=== PATIENT | female | born 1955 | race Caucasian/White ===

== ENCOUNTER → 2016-10-13 | Outpatient (CLI) | payer OTHER ==
[~2016-10-13] MED LIST: ACT30 PO; ALBUAER19 INH; ATEN100T PO; ATEN50TA8 PO; BUPR-79 PO; CHOL100010 PO; CHOL20009 PO; CLR10 PO; COEN100C7 PO; COEN1CAP17 PO; CYAN100020 PO; DICL1GEL12 TOP; DICL1GEL28 TOP; DULO60CA44 PO; GABA600T PO; GLC/500 PO; LEVO112T2 PO; LEVO112T4 PO; LORA-741 PO; LORA10TA44 PO; METF1TAB85 PO; MISC4CAP PO; MOME50SP5 NAE; MOME6000 NAE; MULT-506 PO; MULTTAB58 PO; NRN/600 PO; NYSCR30 EXT; OMEG10007 PO; OMEP20CA9 PO; ONDA4TAB10 SL; ONDA4TAB46 PO; POLY335019 PO; POLY335040 PO; PRLSR20 PO; SIMV40TA2 PO; SPIR50TA2 PO; SPIR50TA3 PO; SULF800T23 PO; VNTHFA/IN INH
[2016-10-13 10:58] LABS: BASO % 0.6 %; BASO ABS # 0.05 K/uL (0-0.2); COMPLETE YES; EOS % 1.2 %; HEMATOCRIT 41.7 % (37-47); IG% 0.1 %; LYMPH % 40.1 %; LYMPH ABS # 3.21 K/uL (1.2-3.4); MEAN CELL VOLUME 81.1 fL (80-100); MEAN CORPUSCULAR HEMOGLOBIN 27.2 pg (25-34); MEAN CORPUSCULAR HGB CONC 33.6 g/dl (32-36); MEAN PLATELET VOLUME 9.7 fL (7.4-10.4); PLATELET COUNT 284 K/uL (130-400); RED BLOOD COUNT 5.14 M/uL (4.2-5.4); WHITE BLOOD COUNT 8.01 K/uL (4.8-10.8)
[2016-10-13 11:37] LABS: ALT/SGPT 21 U/L (12-78); BLOOD UREA NITROGEN 13 mg/dl (7-18); BUN/CREATININE RATIO 21.3 (10-20); CALCIUM 9.1 mg/dl (8.5-10.1); CARBON DIOXIDE 29 mmol/L (21-32); CHLORIDE 98 mmol/L (98-107); CHOLESTEROL 141 mg/dl (0-200); GLUCOSE 109 mg/dl (70-99); MAGNESIUM 1.8 mg/dl (1.8-2.4); POTASSIUM 3.8 mmol/L (3.5-5.1); SODIUM 138 mmol/L (136-145); TRIGLYCERIDES 103 mg/dl (0-150); VERY LOW DENSITY LIPOPROT CALC 21 mg/dl
[2016-10-13 11:46] LABS: ALB/GLOB RATIO 1.3 (0.9-2); ALKALINE PHOSPHATASE 65 U/L (45-117); AST/SGOT 15 U/L (15-37); CHOLESTEROL/HDL RATIO 2.7; HDL CHOLESTEROL 53 mg/dl; LDL CHOLESTEROL CALCULATED 67 mg/dl
[2016-10-13 11:53] LABS: ESTIMATED AVERAGE GLUCOSE 146 mg/dl; HA1C FLAG Normal (Normal)
== END | disposition home or self-care (01) ==
LOC: C.LAB 10:20
PROVIDERS: ATTEND Internal Medicine
DX: E11.8 Type 2 diabetes mellitus with unspecified complications (principal); E03.9 Hypothyroidism, unspecified; R00.2 Palpitations

== ENCOUNTER → 2016-10-28 | Day surgery (SDC) | payer OTHER ==
[2016-10-21 11:48] VITALS: Ht 158.8 cm; Wt 82.7 kg
[~2016-10-28] VITALS: Ht 158.8 cm; Wt 82.7 kg
[~2016-10-28] MED LIST changes: -ATEN50TA8 PO; -CHOL100010 PO; -COEN1CAP17 PO; -LEVO112T2 PO; +LIDOCAINE HCL 2% 2 ML VIAL (20MG/ML) ONE; -LORA10TA44 PO; +MIDAZOLAM HCL 1 MG/ML 2ML VIAL ONE; -MISC4CAP PO; -MOME50SP5 NAE; -MULTTAB58 PO; -NRN/600 PO; -OMEP20CA9 PO; +ONDANSETRON INJ 2 MG/ML 2 ML VIAL ONE; -POLY335040 PO; +PROPOFOL IV EMULSION 10 MG/ML 20 ML VIAL IV ONE; +SODIUM CHLORIDE 0.9% 500ML 500 ML IV ONE; -SPIR50TA2 PO
--- NOTE | 2016-10-28 08:46 | Endo History and Physical ---
History & Physical Date of Service: Oct 28, 2016. Chief Complaint: Screening Referring Physician: Dr. Roque History of Present Illness 61 yo CF who presents for screening colonoscopy. Past Surgical History Hx Cardiac Surgery: No Hx Abdominal Surgery: Yes (TUBAL LIGATION, D&C, TARUN LEFT OOPHERECTOMY) Hx Post-Op Nausea and Vomiting: Yes Hx Cancer Surgery: No Hx Thoracic Surgery: Yes (BRONCHOSCOPY, LUNG BIOSPY) Hx Orthopedic: Yes (RT/LEFT CTR) Hx Urinary Tract Surgery: Yes (RECTOCELE/UROCELE WITH MESH) Family History None Social History Smoking Status: Former Smoker Hx Substance Use: No Hx Alcohol Use: No Allergies Coded Allergies: Cat Dander (Verified Allergy, Mild, SNEEZY/ITCHY EYES, 10/21/16) Butalbital (Verified Allergy, Unknown, SENSITIVE, TONGUE GETS NUMB, ) Codeine (Verified Allergy, Unknown, FLUSHING FEELING, 10/21/16) Cortisone (Verified Allergy, Unknown, FLUSHING, 10/21/16) Dicyclomine (Verified Allergy, Unknown, Unknown, 10/21/16) Hydrocodone (Verified Allergy, Unknown, SKIN BURNING, 10/21/16) Methylprednisolone (Verified Allergy, Unknown, FLUSHING, 10/21/16) Penicillins (Verified Allergy, Unknown, Unknown, 10/21/16) Prednisone (Verified Allergy, Unknown, FLUSHING, 10/21/16) Verapamil (Verified Allergy, Unknown, Unknown, 10/21/16) Opioid Analgesics (Verified Adverse Reaction, Mild, N&V, 10/21/16) Uncoded Allergies: BUTALBITAL-APAP (Allergy, Unknown, Unknown, 04/17/16) CHEMICALS,PERFUMES,FLORALS (Allergy, Unknown, 11/16/02) Current Medications Reported Home Medications Medications Dose Route/Sig Max Daily Dose Days Date Category Dose Instructions Vitamin D (Cholecalciferol) 2,000 Unit Tab 1 Tab PO QAM 10/21/16 Reported Vitamin B12 (Cyanocobalamin) 1,000 Mcg Tab 1 Tab PO QAM 10/21/16 Reported Ventolin Hfa (Albuterol) 200 Puffs/55183 Mcg Aers 2-4 Puffs INH Q6H PRN 10/21/16 Reported Aldactone (Spironolactone) 50 Mg Tab 50 Mg PO QAM 10/21/16 Reported Zocor (Simvastatin) 40 Mg Tab 40 Mg PO QPM 10/21/16 Reported Actos (Pioglitazone) 30 Mg Tab 1 Tab PO QPM 90 10/21/16 Reported Zofran (Ondansetron HCl) 4 Mg Tab 4 Mg PO Q8H PRN 10/21/16 Reported Prilosec (Omeprazole) 20 Mg Capcr 20 Mg PO BID 10/21/16 Reported [place]-3 (Fish Oil) 1 Ea Cap 1 Cap PO QAM 10/21/16 Reported Nystatin Cream (Nystatin) 90 Appln/30 Gm Cr 0 EXT 10/21/16 Reported APPLY TO AFFECTED AREA BID Multivitamin (Multivitamins) Tab 1 Tab PO QAM 10/21/16 Reported Miralax (Polyethylene Glycol 3350) 1 Pow Pow 17 Gm PO DAILY PRN 10/21/16 Reported Glucophage (Metformin Hcl) 500 Mg Tab 1 Dose PO TID 10/21/16 Reported TAKES 1 TAB IN AM TAKES 2 TABS AT SUPPER TAKES 1 TAB AT HS Ativan (Lorazepam) 0.5 Mg Tab 0.5 Mg PO TID PRN 10/21/16 Reported Claritin (Loratadine) 10 Mg Tab 10 Mg PO QAM 10/21/16 Reported Levothyroxine Sodium 112 Mcg Tab 1 Tab PO QAM 90 10/21/16 Reported Neurontin (Gabapentin) 600 Mg Tab 600 Mg PO TID 10/21/16 Reported Cymbalta (Duloxetine Hcl) 60 Mg Cap 2 Tab PO HS 10/21/16 Reported Coq10 (Coenzyme Q10 (Ubidecarenone)) 100 Mg Cap 1 Cap PO QAM 10/21/16 Reported Tenormin (Atenolol) 100 Mg Tab 100 Mg PO QAM 10/21/16 Reported Voltaren 1% Top Gel (Diclofenac Sodium) Gel 2 Gm TOP QID PRN 04/17/16 Reported APPLY TO UPPER EXTREMITIES DIRECTED Wellbutrin Sr (Bupropion HCl) 150 Mg Ertab 150 Mg PO BID 10/18/13 Reported Vital Signs Weight (Kilograms): 82.73 Height (Feet): 5 Height (Inches): 2.5 Physical Exam General Appearance: WD/WN, no apparent distress Respiratory/Chest: Auscultation: breath sounds normal Cardiovascular: Heart Auscultation: RRR Abdomen: Bowel Sounds: normal Inspection & Palpation: soft, non-distended, no tenderness, guarding & rebound Assessment and Plan Assessment: 61 yo CF who presents for screening colonoscopy. Plan: Proceed with colonoscopy.
[2016-10-28 08:57] VITALS: TEMP 36.8
--- NOTE | 2016-10-28 09:56 | GI REPORT ---
Procedure Date: 10/28/2016 9:10 AM Procedure: Colonoscopy Indications: Screening for colorectal malignant neoplasm Medicines: Monitored Anesthesia Care Complications: No immediate complications. Estimated Blood Loss: Estimated blood loss: none. Procedure: Pre-Anesthesia Assessment: - Prior to the procedure, a History and Physical was performed, and patient medications and allergies were reviewed. The patient's tolerance of previous anesthesia was also reviewed. The risks and benefits of the procedure and the sedation options and risks were discussed with the patient. All questions were answered, and informed consent was obtained. Prior Anticoagulants: The patient has taken no previous anticoagulant or antiplatelet agents. ASA Grade Assessment: III - A patient with severe systemic disease. After reviewing the risks and benefits, the patient was deemed in satisfactory condition to undergo the procedure. After I obtained informed consent, the scope was passed under direct vision. Throughout the procedure, the patient's blood pressure, pulse, and oxygen saturations were monitored continuously. The scope was introduced through the anus and advanced to the cecum, identified by appendiceal orifice and ileocecal valve. The colonoscopy was performed without difficulty. The patient tolerated the procedure well. The quality of the bowel preparation was fair. The ileocecal valve, appendiceal orifice, and rectum were photographed. Findings: Two sessile polyps were found in the ascending colon. The polyps were 3 to 4 mm in size. These polyps were removed with a cold biopsy forceps. Resection and retrieval were complete. Multiple small-mouthed diverticula were found in the sigmoid colon. Non-bleeding internal hemorrhoids were found during retroflexion. The hemorrhoids were small. Impression: - Two 3 to 4 mm polyps in the ascending colon, removed with a cold biopsy forceps. Resected and retrieved. - Diverticulosis in the sigmoid colon. - Non-bleeding internal hemorrhoids. Recommendation: - Resume previous diet. - Continue present medications. - Repeat colonoscopy for surveillance based on pathology results. - Return to primary care physician as previously scheduled. - Recommend followup in our office and consider Defecography and anorectal manometry in the near future Chito Glaser, DO 10/28/2016 9:55:09 AM This report has been signed electronically. Note Initiated On: 10/28/2016 9:10 AM
--- NOTE | 2016-10-28 09:56 | Discharge Instructions ---
Endoscopy Patient Instructions Date / Procedure(s) Performed Oct 28, 2016. Colonoscopy Allergy Information Coded Allergies: Cat Dander (Verified Allergy, Mild, SNEEZY/ITCHY EYES, 10/21/16) Butalbital (Verified Allergy, Unknown, SENSITIVE, TONGUE GETS NUMB, ) Codeine (Verified Allergy, Unknown, FLUSHING FEELING, 10/21/16) Cortisone (Verified Allergy, Unknown, FLUSHING, 10/21/16) Dicyclomine (Verified Allergy, Unknown, Unknown, 10/21/16) Hydrocodone (Verified Allergy, Unknown, SKIN BURNING, 10/21/16) Methylprednisolone (Verified Allergy, Unknown, FLUSHING, 10/21/16) Penicillins (Verified Allergy, Unknown, Unknown, 10/21/16) Prednisone (Verified Allergy, Unknown, FLUSHING, 10/21/16) Verapamil (Verified Allergy, Unknown, Unknown, 10/21/16) Opioid Analgesics (Verified Adverse Reaction, Mild, N&V, 10/21/16) Uncoded Allergies: BUTALBITAL-APAP (Allergy, Unknown, Unknown, 04/17/16) CHEMICALS,PERFUMES,FLORALS (Allergy, Unknown, 11/16/02) Discharge Date / Findings Oct 28, 2016. Colon polyps Diverticulosis Internal hemorrhoids Medication Instructions Stopped Medication(s): Metformin was last taken on Wednesday evening. Nystatin, aldactone and vitamins were not taken this am. Reported Home Medications Medications Dose Route/Sig Max Daily Dose Days Date Category Dose Instructions Vitamin D (Cholecalciferol) 2,000 Unit Tab 1 Tab PO QAM 10/21/16 Reported Vitamin B12 (Cyanocobalamin) 1,000 Mcg Tab 1 Tab PO QAM 10/21/16 Reported Ventolin Hfa (Albuterol) 200 Puffs/06358 Mcg Aers 2-4 Puffs INH Q6H PRN 10/21/16 Reported Aldactone (Spironolactone) 50 Mg Tab 50 Mg PO QAM 10/21/16 Reported Zocor (Simvastatin) 40 Mg Tab 40 Mg PO QPM 10/21/16 Reported Actos (Pioglitazone) 30 Mg Tab 1 Tab PO QPM 90 10/21/16 Reported Zofran (Ondansetron HCl) 4 Mg Tab 4 Mg PO Q8H PRN 10/21/16 Reported Prilosec (Omeprazole) 20 Mg Capcr 20 Mg PO BID 10/21/16 Reported [place]-3 (Fish Oil) 1 Ea Cap 1 Cap PO QAM 10/21/16 Reported Nystatin Cream (Nystatin) 90 Appln/30 Gm Cr 0 EXT 10/21/16 Reported APPLY TO AFFECTED AREA BID Multivitamin (Multivitamins) Tab 1 Tab PO QAM 10/21/16 Reported Miralax (Polyethylene Glycol 3350) 1 Pow Pow 17 Gm PO DAILY PRN 10/21/16 Reported Glucophage (Metformin Hcl) 500 Mg Tab 1 Dose PO TID 10/21/16 Reported TAKES 1 TAB IN AM TAKES 2 TABS AT SUPPER TAKES 1 TAB AT HS Ativan (Lorazepam) 0.5 Mg Tab 0.5 Mg PO TID PRN 10/21/16 Reported Claritin (Loratadine) 10 Mg Tab 10 Mg PO QAM 10/21/16 Reported Levothyroxine Sodium 112 Mcg Tab 1 Tab PO QAM 90 10/21/16 Reported Neurontin (Gabapentin) 600 Mg Tab 600 Mg PO TID 10/21/16 Reported Cymbalta (Duloxetine Hcl) 60 Mg Cap 2 Tab PO HS 10/21/16 Reported Coq10 (Coenzyme Q10 (Ubidecarenone)) 100 Mg Cap 1 Cap PO QAM 10/21/16 Reported Tenormin (Atenolol) 100 Mg Tab 100 Mg PO QAM 10/21/16 Reported Voltaren 1% Top Gel (Diclofenac Sodium) Gel 2 Gm TOP QID PRN 04/17/16 Reported APPLY TO UPPER EXTREMITIES DIRECTED Wellbutrin Sr (Bupropion HCl) 150 Mg Ertab 150 Mg PO BID 10/18/13 Reported OK to resume all medications today as prescribed. Provider Instructions Activity Restrictions - No exercising or heavy lifting for 24 hours. - Do not drink alcohol the day of the procedure. - Do not drive a car or operate machinery until the day after the procedure. - Do not make any important decisions or sign important papers in 24 hours after the procedure. Following Day: - Return to full activity which may include returning to work/school. Diet Start your diet with liquids and light foods (jello, soup, juice, toast). Then eat your usual diet if not nauseated. Treatment For Common After Affects For mild abdominal pain, bloating, or excessive gas: - Rest - Eat lightly - Lie on right side Follow-Up Information Follow-up with Dr. Brian Roque as scheduled Anesthesia Information What You Should Know You have had a procedure that required some medicine to reduce anxiety and discomfort. This treatment is called moderate sedation. After receiving the treatment, you may be sleepy, but you will be able to breathe on your own. The effects of the treatment may last for several hours. Follow these instructions along with Activity/Diet recommendations noted above: * Do NOT do anything where dizziness or clumsiness would be dangerous. * Rest quietly at home today, then you can be up and about tomorrow. * Have a responsible person stay with you the rest of today. * You may have had an I.V. today. If so, you may take the dressing off later today. Recommendations Call your doctor if: * Trouble breathing * Continuous vomiting for more than 24 hours * Temperature above 101 degrees * Severe abdominal pain or bloating * Pain not relieved by pain medicine ordered * There is increased drainage or redness from any incision * A large amount of rectal bleeding greater than 2-3 tablespoons. (If you had a polyp/s removed or have hemorrhoids, a small amount of blood - from the rectum is to be expected.) * You have any unanswered questions or concerns. IN THE EVENT OF A SERIOUS EMERGENCY, GO TO THE NEAREST EMERGENCY ROOM Your discharge instructions were prepared by provider Chito Glaser. Patient Instructions Signature Page Tina Graves Patient (or Guardian) Signature/Date: I have read and understand the instructions given to me by my caregivers. Caregiver/RN/Doctor Signature/Date: The above-named patient and/or guardian has received patient instructions on this date. + Original Patient Signature Page (only) stays with chart. Please make copy for patient.
[2016-10-28 10:17] VITALS: BP 105/65; PULSE 75; O2SAT 97
--- NOTE | 2016-10-28 10:19 | Anesthesiology Progress Note ---
Anesthesia Post Op Note Date & Time Oct 28, 2016 at 10:19 Vital Signs Pain Intensity: 0 Vital Signs Past 12 Hours Date Time Temp Pulse Resp B/P Pulse Ox O2 Delivery O2 Flow Rate FiO2 10/28/16 10:17 75 20 105/65 97 Room Air 10/28/16 10:02 77 20 100/59 96 Room Air 10/28/16 09:47 73 20 94/56 96 Room Air 10/28/16 08:57 36.8 75 20 124/70 98 Room Air Notes Mental Status: alert / awake / arousable, participated in evaluation Pt Amnestic to Procedure: Yes Nausea / Vomiting: adequately controlled Pain: adequately controlled Airway Patency, RR, SpO2: stable & adequate BP & HR: stable & adequate Hydration State: stable & adequate Anesthetic Complications: no major complications apparent
== END | disposition home or self-care (01) ==
LOC: C.GI 08:15
PROVIDERS: ATTEND Internal Medicine
DX: Z12.11 Encounter for screening for malignant neoplasm of colon (principal); Z86.010 Personal history of colon polyps; D12.2 Benign neoplasm of ascending colon; I10 Essential (primary) hypertension; G47.33 Obstructive sleep apnea (adult) (pediatric)

== ENCOUNTER → 2016-11-13 | Outpatient (CLI) | payer OTHER ==
[~2016-11-13] MED LIST changes: -ALBUAER19 INH; -LIDOCAINE HCL 2% 2 ML VIAL (20MG/ML) ONE; -MIDAZOLAM HCL 1 MG/ML 2ML VIAL ONE; -ONDANSETRON INJ 2 MG/ML 2 ML VIAL ONE; -PROPOFOL IV EMULSION 10 MG/ML 20 ML VIAL IV ONE; -SODIUM CHLORIDE 0.9% 500ML 500 ML IV ONE
[2016-11-18 15:34] LABS: CRYPTOSPORIDIUM AG TC 37213 NOT DETECTED (NOT DETECTED); ISOSPORA+CYCLOSPORA NOT DETECTED; O&P GIARDIA AG NOT DETECTED (NOT DETECTED); O&P SOURCE OTHER-STOOL
== END | disposition home or self-care (01) ==
LOC: C.LABSPEC 11-12 07:50
PROVIDERS: ATTEND Registered Nurse
DX: R15.9 Full incontinence of feces (principal)

== ENCOUNTER → 2017-03-31 | Outpatient (CLI) | payer OTHER ==
[2017-03-31 15:02] LABS: ESTIMATED AVERAGE GLUCOSE 151 mg/dl; HA1C FLAG Normal (Normal)
[2017-03-31 15:03] LABS: RATIO 9.2 mcg/mg (0-30.0)
[2017-03-31 15:08] LABS: BLOOD UREA NITROGEN 16 mg/dl (7-18); BUN/CREATININE RATIO 25.6 (10-20); CARBON DIOXIDE 33 mmol/L (21-32); CHLORIDE 98 mmol/L (98-107); CREATININE 0.63 mg/dl (0.60-1.20); GLUCOSE 95 mg/dl (70-99); POTASSIUM 4.7 mmol/L (3.5-5.1); SODIUM 135 mmol/L (136-145)
[2017-03-31 15:18] LABS: THYROID STIMULATING HORMONE 0.929 uIu/ml (0.300-4.500)
== END | disposition home or self-care (01) ==
LOC: C.LAB1850 13:16
PROVIDERS: ATTEND Internal Medicine
DX: E11.8 Type 2 diabetes mellitus with unspecified complications (principal); E11.42 Type 2 diabetes mellitus with diabetic polyneuropathy; E03.9 Hypothyroidism, unspecified

== ENCOUNTER → 2017-04-29 | Outpatient (CLI) | payer OTHER ==
--- NOTE | 2017-04-30 08:08 | MAMMOGRAPHY REPORT ---
BILATERAL DIGITAL SCREENING MAMMOGRAM TOMOSYNTHESIS WITH CAD: 04/29/2017 CLINICAL HISTORY: Routine screening. Patient has no complaints. TECHNIQUE: Breast tomosynthesis in addition to standard 2D mammography was performed. Current study was also evaluated with a Computer Aided Detection (CAD) system. COMPARISON: Comparison is made to exams dated: 04/27/2016 mammogram, 04/22/2015 mammogram, 04/18/2014 m ammogram, 04/17/2013 mammogram, 04/15/2012 mammogram, and 04/14/2011 mammogram - [facility] enter. BREAST COMPOSITION: The tissue of both breasts is almost entirely fatty. FINDINGS: No suspicious masses, calcifications, or areas of architectural distortion are noted in ei ther breast. There has been no significant interval change compared to prior exams. IMPRESSION: ACR BI-RADS CATEGORY 1: NEGATIVE There is no mammographic evidence of malignancy. A 1 year screening mammogram is recommended. The pa tient will receive written notification of the results. Approximately 10% of breast cancers are not detected with mammography. A negative mammographic report should not delay biopsy if a clinically suggestive mass is present. Michelle Rouse M.D. /:04/29/2017 16:05:49 Analytical Chemistry Teacher: Jolene Bell [facility] letter sent: Normal 1/2 BI-RADS Code: ACR BI-RADS Category 1: Negative
== END ==
LOC: C.MAMM 10:04
PROVIDERS: ATTEND Obstetrics & Gynecology
DX: Z12.31 Encounter for screening mammogram for malignant neoplasm of breast (principal)

== ENCOUNTER → 2017-05-12 | Outpatient (CLI) | payer OTHER ==
--- NOTE | 2017-05-13 06:10 | PAP/PSG TECHNICIAN REPORT ---
[facility] Chemical Etching Processor Polysomnogram Report Study name: None Report date: 05/13/2017 Study date: 05/12/2017 Referring Physician: Albino Kohler M.D. Name: ROMEO SALMERON Interpreting Physician: Albino Kohler M.D. Date of : 1955 Chemical Etching Processor: Karla Cornejo RPS. Sex: Female Age: 61 StudyType: PSG Weight: 180 lbs Height: 61 years, Height 5' 2" BMI: 32.92 Medications: Levothyroxine Sodium 11 MCG, Omeprazole 20 mg, Spironolactone 50 mg, Simvastatin 40 mg, Mometasone Furoate 50 MCG, Metformin 500 mg, Gabapentin 600 mg, Loratadine 10 mg, Pioglitazone HCL 30 mg, Co Q10, Ventolin HFA 108 ( 90 Base), Lorazepam 0.5 mg, Bupropion 150 mg, Ondansetron 4 mg, Diclofenac Sodium 1%, Vitamin B12, [place] 3, Atenolol 100 mg, Duloxetine 60 mg Patient History 61 yr. old female here for an updated titration sleep study. Patient complains of EDS, snoring and fragmented sleep architecture. Patient is currently on 10 CWP. Naps are unrefreshing. Patients [place] Sleepiness Scale Score is 8/24. Parameters Monitored NPSG: E1-M2, E2-M1, Fp1-M2, Fp2-M1, F3-M2, F4-M2, F4-M1, C3-M2, C4-M2, C4-M1, O1-M2, O2-M2, O2-M1, T3-M2, T4-M1, P3-M2, P4-M1, CHIN1, CHIN2, HR, EKG, Legs, PFLOW, SNOR, FLOW, CFLOW, Tidal Volume, THOR, ABDO, SpO2, PLTH, CPRESS, ETCO2 Wave, ETCO2, pH Sleep Architecture Sleep Stages Time at Lights Off 10:16:51 PM STAGES Time (min.) TST (%) Time at Lights On 5:34:21 AM Wake 45.5 -- Total Recording Time (TRT) 438.00 min. N1 57.0 15 Total Sleep Period (TSP) 428.5 min. N2 281.5 72 Total Sleep Time (TST) 392.0min. N3 52.0 13 Awake Time 46.0 min. REM 1.5 0 Wake after Sleep Onset 36.5 min. Sleep Efficiency (SE) 90 % Sleep Onset Latency (SARMAD) 9.0 min. Number of Stage 1 Shifts None Awakenings 25 Stage Changes 142 Number of REM periods 1 REM 1.5 0 REM Latency 426.0 min. NREM 390.5 100 Body Position Analysis Supine Right Left Side Prone Vertical Total Sleep Time (min.) 253.0 173.5 0.0 173.50 0.0 0.0 Total Sleep Time (%) 56% 44% 0% 44 0% N/A% Total Sleep Time REM (min.) 0.0 1.5 0.0 None 0.0 0.0 Total Sleep Time NREM (min.) 218.5 172.0 0.0 None 0.0 0.0 Intermittent Wake (min.) 34.5 11.0 0.0 None 0.0 0.0 Total Sleep Period (%) 57% None None None None None Arousals Myoclonus (PLM) * Events Count Index Events Count Index Spontaneous 11 2 Events Awake (PLMW) 50 65.9 Respiratory 4 0.8 Events Asleep w/ Arousal (PLMA) 51 7.8 PLM 49 8 Events Asleep w/o Arousal (PLMS) 107 16.4 Snoring 4 1 Total Asleep 158 24.2 Total 68 10 Total 208 29 Respiratory Analysis * CA OA MA CH H RERA Total Count 0 0 0 0 14 1 14 Index 0.0 0.0 0.0 0 2.1 0 2.3 Mean Duration 0.0 0.0 0.0 0.00 31.5 34.2 31.7 Longest Duration 0.0 0.0 0.0 0.00 0.0 34.2 71.0 Respiratory Event Summary Total Supine ~Supine Right Left Prone REM NREM Apneas Count 0 0 0 0 N/A N/A 0 0 Index 0.0 0 0 0.0 N/A N/A 0 0 Hypopneas (4% Desat) Count 14 11 3 3 N/A N/A 0 14 Index 2.1 3.0 1 1.0 N/A N/A 0.0 2.2 Apneas & All Hypopneas Count 14 11 3 3 N/A N/A 0 14 Index 2.1 3 1 1 N/A N/A 0.0 2.2 Respiratory Events (Clerical Warehouse Worker+All Hyp+RERA) Count 14 12 3 3 N/A N/A 0 14 Index 2.3 3 1 1.0 N/A N/A 0.0 2.3 Respiratory Related Arousal Count 4 12 1 1 N/A N/A 0 5 Index 0.8 1 0 0 N/A N/A 0 1 Snoring Analysis Supine Right Left Prone REM NREM Total Snore duration 2.5 min Snores count 45 32 N/A N/A 0 77 77 Snore mean duration 1.9 Sec Snores index 12 11 N/A N/A 0.0 11.8 11.8 TST with snoring (%) 0.6% Desaturation Event Summary: Minimum %SpO2 Event Count Mean/Min/Max Duration(sec.) Desaturation Index % Time In Bed > 90 33 29.8 / 10.8 / 60.0 5.1 90.5 86 - 90 3 14.3 / 9.5 / 22.3 4.5 9.3 81 - 85 0 N/A 0.0 0.2 76 - 80 0 N/A 0.0 0.0 71 - 75 0 N/A 0.0 0.0 66 - 70 0 N/A 0.0 0.0 61 - 65 0 N/A 0.0 0.0 56 - 60 0 N/A 0.0 0.0 51 - 55 0 N/A 0.0 0.0 < 50 0 N/A 0.0 0.0 Total REM NREM Awake <50% 0.0 min. 0.0 min. 0.0 min. 0.0 min. 51 - 60% 0.0 min. 0.0 min. 0.0 min. 0.0 min. 61 - 70% 0.0 min. 0.0 min. 0.0 min. 0.0 min. 71 - 80% 0.0 min. 0.0 min. 0.0 min. 0.0 min. 81 - 90% 40.9 min. 0.0 min. 39.1 min. 1.8 min. 91 - 100% 390.4 min. 1.5 min. 351.4 min. 37.5 min. Average 93 94 92 95 Minimum SpO2 82 93 87 82 Desaturation Event Index 4.8 0.0 4.5 7.9 # Desat. Events below 89% 5 N/A 4 1 Time(%) with Saturation below 89% 0.4 0.0 0.2 0.2 Time(min.) with Saturation below 89% 1.7 0.0 0.9 0.8 Time (mins) REM (mins) NREM (mins) % of TST SpO2 Below 90% 12 N/A N12 1.4 SpO2 Below 88% 2 0 0 0 Heart Rate Analysis Min (bpm) Max (bpm) Average (bpm) Awake 56 110 74 NREM 67 89 75 REM 80 86 83 Overall 67 89 75 Supplemental O2 Values Minimum O2 level: None Value Start Time End Time Chemical Etching Processor Comments Mrs. Salmeron slept in the right, left, and supine positions. No cardiac arrhythmia. Frequent PLMs noted. No bruxism noted. CPAP was initiated at +4 CMH2O room air and up-titrated to a level of +7 CMH2O Cflex 1 , which nearly eliminated all respiratory events and snoring. A Respironics Dreamware, was used during titration. Mrs. Salmeron awoke to use the restroom once during the night. Mrs. Salmeron stated, that was a normal night. The final report will be interpreted and signed by a sleep physician. The completed physician report will then be placed in the patient medical record. Therapy Event: Therapy (cm H20) 4 5 6 7 Total Time at Pressure (min.) 97.9 115.1 41.9 182.4 TST at Pressure (min.) 81.6 97.6 40.9 171.9 # Periods 1 1 1 1 Sleep Onset (min.) 8.8 0.0 0.0 0.0 REM Onset (min.) N/A N/A N/A 179.9 Sleep Efficiency % 83 84 97 94 Wakefulness (%) 16.7 15.2 2.4 5.8 Wakefulness (min.) 16.3 17.5 1.0 10.5 NREM 1 (%) 14.4 10.4 3.6 16.2 NREM 1 (min.) 14.1 11.9 1.5 29.5 NREM 2 (%) 32.2 69.7 69.0 77.2 NREM 2 (min.) 31.5 80.2 28.9 140.9 NREM 3 (%) 36.8 4.8 25.0 0.0 NREM 3 (min.) 36.0 5.5 10.5 0.0 REM (%) 0.0 0.0 0.0 0.8 REM (min.) 0.0 0.0 0.0 1.5 # Arousals 7 20 1 40 Arousal Index 5.1 12.3 1.5 14.0 # Snore 14 20 11 32 Snore Index 10.3 12.3 16.1 11.2 AHI 3.7 2.5 2.9 1.0 AHI Supine 3.7 2.5 3.0 N/A AHI Non-Supine N/A N/A 0.0 1.0 NREM AHI 3.7 2.5 2.9 1.1 REM AHI N/A N/A N/A 0.0 RDI 3.7 2.5 4.4 1.0 # Obstructive 0 0 0 0 # Central Ap 0 0 0 0 # Mixed 0 0 0 0 # Hypopneas 5 4 2 3 RERAS 0 0 1 0 Total Respiratory Events 5 4 3 3 Time Below SpO2 89.00% (min.) 0.4 0.1 0.2 0.2 Mean NREM SpO2 (%) 91 92 92 93 Mean REM SpO2 (%) N/A N/A N/A 94 Mean Sleep SpO2 (%) 91 92 92 93 Min NREM SpO2 (%) 87 88 88 88 Min REM SpO2 (%) N/A N/A N/A 93 Position Supine (min.) 81.6 97.6 39.3 0.0 Position Non-supine (min.) 0.0 0.0 1.6 171.9 LM Index Sleep 22.1 32.6 0.0 26.2 LM Index NREM 22.1 32.6 0.0 25.4 LM Index REM N/A N/A N/A 120.0 Mean Heart Rate (bpm) 71 70 75 79 Min Heart Rate (bpm) 67 67 72 75
--- NOTE | 2017-05-17 17:28 | POLYSOMNOGRAPH REPORT ---
CLINICAL DATA: A 61-year-old female with a BMI of 32.9 referred for a CPAP titration study. She does have moderate sleep apnea and is currently on 10 cm water pressure, but continues to have excessive daytime sleepiness, snoring and fragmented sleep. Her Ava sleepiness score was 8/24. SLEEP ARCHITECTURE: Total recording time was 438 minutes. Total sleep period was 428.5 minutes. Total sleep time was 392 minutes divided between 390.5 minutes of non-REM sleep and 1.5 minutes of REM sleep. Sleep onset latency was 9 minutes. REM latency was 426 minutes. Sleep efficiency was 90%. Wake after sleep onset was 36.5 minutes. Sleep consisted of stage N1 15%, stage N2 72%, stage N3 13%, and REM less than 1%. AROUSAL DATA: Sixty eight arousals were recorded for an index of 10 per hour. PERIODIC LIMB MOVEMENTS DATA: Mildly elevated limb movements during sleep were noted. There are 158 limb movements during sleep noted for an index of 24.2 per hour with arousal index of 7.8 per hour. RESPIRATORY DATA: The AHI was 2.1. There were 14 hypopneic episodes with a mean duration of 31.5 seconds. OXIMETRY DATA: Transient nocturnal hypoxemia was seen. Oxygen yan was 87% during non-REM sleep. The mean saturation was 93%. Time below 88% was 2 minutes. ELECTROCARDIOGRAM: Heart ranged from 67-89 beats per minute. No arrhythmias were noted. CERTIFIED NURSE MIDWIFE'S COMMENTS AND TREATMENT SUMMARY: The patient slept in the right, left, and supine positions. She used a Respironics DreamWear mask. She was titrated up to CPAP 7 cm of water pressure, C-Flex 1. At that pressure setting, the patient slept for 171.9 minutes with an AHI of 1. IMPRESSION: Moderate sleep apnea/hypopnea corrected with CPAP 7 cm of water pressure, C-Flex setting 1. RECOMMENDATIONS: The patient should be continued on CPAP. Her pressure could be adjusted to the level found to be effective on this titration exam. LARRY
== END | disposition home or self-care (01) ==
LOC: C.NEUR 20:00
PROVIDERS: ATTEND Internal Medicine Pulmonary Disease
DX: J30.9 Allergic rhinitis, unspecified (principal); G47.33 Obstructive sleep apnea (adult) (pediatric)

== ENCOUNTER 2017-06-29 21:47 | Emergency (ER) | payer OTHER ==
[~2017-06-29] VITALS: Ht 157.5 cm; Wt 83.3 kg
[~2017-06-29 21:47] MED LIST changes: -DICL1GEL12 TOP; -METF1TAB85 PO; -MOME6000 NAE; -ONDA4TAB10 SL; -SULF800T23 PO
[2017-06-29 21:51] VITALS: TEMP 36.6; Ht 157.5 cm; Wt 83.3 kg
[2017-06-29] MEDS ORDERED: METF1TAB85 PO (22:28)
[2017-06-29] MEDS ORDERED: DICL1GEL12 TOP (22:28)
[2017-06-29] MEDS: SODIUM CHLORIDE 0.9% 1000ML 1,000 ML IV STA (22:29)
[2017-06-29] MEDS: PROMETHAZINE HCL INJ 25 MG in SODIUM CHLORIDE 0.9% 50ML 50 ML IV STA (22:30)
[2017-06-29] MEDS: KETOROLAC TROMETHAMINE 30 MG/ML VIAL IV STA (22:30)
[2017-06-29] MEDS ORDERED: ONDA4TAB10 SL ×2 (22:32→23:59)
[2017-06-29] MEDS ORDERED: MOME6000 NAE (22:33)
[2017-06-29 22:40] LABS: BASO % 0.3 %; BASO ABS # 0.05 K/uL (0-0.2); COMPLETE YES; EOS % 1.2 %; HEMATOCRIT 40.2 % (37-47); IG% 0.2 %; LYMPH ABS # 2.86 K/uL (1.2-3.4); MEAN CELL VOLUME 81.7 fL (80-100); MEAN CORPUSCULAR HEMOGLOBIN 26.2 pg (25-34); MEAN CORPUSCULAR HGB CONC 32.1 g/dl (32-36); MEAN PLATELET VOLUME 9.5 fL (7.4-10.4); MONO % 6.6 %; NEUT % 73.7 %; PLATELET COUNT 307 K/uL (130-400); RED BLOOD COUNT 4.92 M/uL (4.2-5.4); WHITE BLOOD COUNT 15.91 K/uL (4.8-10.8)
--- NOTE | 2017-06-29 22:48 | EMERGENCY ROOM VISIT NOTE ---
History Report prepared by Larry: Jessica Olson Under the Supervision of: Dr. Ron Wilkins M.D. First contact with patient: 21:55 Chief Complaint: FLANK PAIN Stated Complaint: LEFT BACK PAIN UP TO SHOULDER, BLOODY URINE History of Present Illness The patient is a 61 year old female who presents to the Emergency Room with complaints of persistent left sided flank pain starting 1630 today. The pain is constant. She is also having hematuria. She denies any history of kidney stones. She reports having some nausea yesterday. She is no longer nauseous. She is having pain in her mid back with breathing. She denies any abdominal pain. She denies any chance of . She is not on any blood thinners. Source of History: patient Onset: 1630 Position: other (left sided flank pain) Quality: other (pain) Timing: other (persistent) Associated Symptoms: + back pain, No nausea, No abdominal pain Review of Systems See HPI for pertinent positives & negatives. A total of 10 systems reviewed and were otherwise negative. Past Medical & Surgical Medical Problems: (1) Chronic bronchitis (2) IBS (irritable bowel syndrome) Family History Cancer Diabetes mellitus Gallbladder disease Heart disease Hypertension Lung disease Social History Smoking Status: Never Smoker Alcohol Use: occasionally Drug Use: none Marital Status: Housing Status: lives with family Occupation Status: employed Current/Historical Medications Scheduled Atenolol (Tenormin), 100 MG PO QAM Bupropion (Wellbutrin Sr), 150 MG PO BID Cholecalciferol (Vitamin D), 2,000 INTER.UNIT PO QAM Coenzyme Q10 (Ubidecarenone) (Coq10), 100 MG PO QAM Cyanocobalamin (Vitamin B12), 1,000 MCG PO QAM Duloxetine Hcl (Cymbalta), 120 MG PO HS Fish Oil ([place]-3), 1 CAP PO QAM Gabapentin (Neurontin), 600 MG PO TID Levothyroxine Sodium (Levothyroxine Sodium), 112 MCG PO QAM Loratadine (Claritin), 10 MG PO QAM Metformin Hcl (Metformin Hcl Er), 1,000 MG PO BID Mometasone Furoate (Nasal) (Mometasone Furoate), 2 SPRAYS KANNAN DAILY Omeprazole (Prilosec), 20 MG PO BID Ondasetron Odt (Zofran Odt), 4 MG SL Q6H Pioglitazone (Actos), 30 MG PO QPM Simvastatin (Zocor), 40 MG PO QPM Spironolactone (Aldactone), 50 MG PO QAM Sulfamethoxazole-Trimethoprim (Bactrim Ds 800MG/160MG), 1 TAB PO BID Scheduled PRN Albuterol Hfa (Ventolin Hfa), 2 PUFFS INH Q4H PRN for Shortness of Breath Diclofenac Sodium (Topical) (Voltaren 1% Top Gel), 2 GM TOP QID PRN for Pain Lorazepam (Ativan), 0.5 MG PO Q12 PRN for Anxiety Ondasetron Odt (Zofran Odt), 4 MG SL TID PRN for Nausea Polyethylene Glycol 3350 (Miralax), 17 GM PO DAILY PRN for Constipation Allergies Coded Allergies: Cat Dander (Verified Allergy, Mild, SNEEZY/ITCHY EYES, 10/21/16) Butalbital (Verified Allergy, Unknown, SENSITIVE, TONGUE GETS NUMB, ) Codeine (Verified Allergy, Unknown, FLUSHING FEELING, 10/21/16) Cortisone (Verified Allergy, Unknown, FLUSHING, 10/21/16) Dicyclomine (Verified Allergy, Unknown, Unknown, 10/21/16) Hydrocodone (Verified Allergy, Unknown, SKIN BURNING, 10/21/16) Methylprednisolone (Verified Allergy, Unknown, FLUSHING, 10/21/16) Penicillins (Verified Allergy, Unknown, Unknown, 10/21/16) Prednisone (Verified Allergy, Unknown, FLUSHING, 10/21/16) Verapamil (Verified Allergy, Unknown, Unknown, 10/21/16) Opioid Analgesics (Verified Adverse Reaction, Mild, N&V, 10/21/16) Uncoded Allergies: BUTALBITAL-APAP (Allergy, Unknown, Unknown, 04/17/16) CHEMICALS,PERFUMES,FLORALS (Allergy, Unknown, 11/16/02) Physical Exam Vital Signs Date Time Temp Pulse Resp B/P (MAP) Pulse Ox O2 Delivery O2 Flow Rate FiO2 06/30/17 00:12 87 18 112/64 95 Room Air 06/29/17 23:34 79 16 109/66 98 Room Air 06/29/17 21:51 36.6 80 16 131/85 98 Room Air Physical Exam GENERAL: Patient is a healthy-appearing well-nourished female HEAD: Normocephalic atraumatic EYES: Ocular movements intact pupils equal and react to light OROPHARYNX mucous membranes are moist no exudates present no erythema or edema present NECK: Supple no nuchal rigidity CHEST: Good equal expansion LUNGS: Clear and equal to auscultation CARDIAC: Normal S1 and S2 ABDOMEN: Soft nontender no guarding BACK: No CVA tenderness EXTREMITIES: No pain upon palpation normal muscle strength in all groups no clubbing cyanosis or edema NEURO: Patient is following commands and answering questions appropriately. Alert and oriented x3 Cranial Nerves 2-12 grossly intact Medical Decision & Procedures ER Provider Diagnostic Interpretation: Radiology results as stated below per my review and [facility] radiologist interpretation: CT Abdomen & Pelvis: No renal stones, hydronephrosis, or evidence of ureteral or bladder stone. Mild symmetric appearing perinephric stranding is nonspecific. Abdominal solid organs and gallbladder appear within limits on noncontrast imaging. No bowel dilation or free air. Normal caliber appendix without secondary signs Diverticulosis No free fluid. Laboratory Results 06/29/17 22:15 Red Blood Count 4.92, Mean Corpuscular Volume 81.7, Mean Corpuscular Hemoglobin 26.2, Mean Corpuscular Hemoglobin Concent 32.1, Mean Platelet Volume 9.5, Neutrophils (%) (Auto) 73.7, Lymphocytes (%) (Auto) 18.0, Monocytes (%) (Auto) 6.6, Eosinophils (%) (Auto) 1.2, Basophils (%) (Auto) 0.3, Neutrophils # (Auto) 11.73, Lymphocytes # (Auto) 2.86, Monocytes # (Auto) 1.05, Eosinophils # (Auto) 0.19, Basophils # (Auto) 0.05 06/29/17 22:15 Test 06/29/17 22:15 White Blood Count 15.91 K/uL (4.8-10.8) Red Blood Count 4.92 M/uL (4.2-5.4) Hemoglobin 12.9 g/dL (12.0-16.0) Hematocrit 40.2 % (37-47) Mean Corpuscular Volume 81.7 fL (80-100) Mean Corpuscular Hemoglobin 26.2 pg (25-34) Mean Corpuscular Hemoglobin Concent 32.1 g/dl (32-36) Platelet Count 307 K/uL (130-400) Mean Platelet Volume 9.5 fL (7.4-10.4) Neutrophils (%) (Auto) 73.7 % Lymphocytes (%) (Auto) 18.0 % Monocytes (%) (Auto) 6.6 % Eosinophils (%) (Auto) 1.2 % Basophils (%) (Auto) 0.3 % Neutrophils # (Auto) 11.73 K/uL (1.4-6.5) Lymphocytes # (Auto) 2.86 K/uL (1.2-3.4) Monocytes # (Auto) 1.05 K/uL (0.11-0.59) Eosinophils # (Auto) 0.19 K/uL (0-0.5) Basophils # (Auto) 0.05 K/uL (0-0.2) RDW Standard Deviation 43.1 fL (36.4-46.3) RDW Coefficient of Variation 14.4 % (11.5-14.5) Immature Granulocyte % (Auto) 0.2 % Immature Granulocyte # (Auto) 0.03 K/uL (0.00-0.02) Urine Color RED Urine Appearance CLEAR (CLEAR) Urine pH 8.0 (4.5-7.5) Urine Specific [place] 1.005 (1.000-1.030) Urine Protein 2+ (NEG) Urine Glucose (UA) NEG (NEG) Urine Ketones NEG (NEG) Urine Occult Blood 3+ (NEG) Urine Nitrite NEG (NEG) Urine Bilirubin NEG (NEG) Urine Urobilinogen NEG (NEG) Urine Leukocyte Esterase SMALL (NEG) Urine WBC (Auto) >30 /hpf (0-5) Urine RBC (Auto) >30 /hpf (0-4) Urine Hyaline Casts (Auto) 1-5 /lpf (0-5) Urine Epithelial Cells (Auto) 5-10 /lpf (0-5) Urine Bacteria (Auto) 3+ (NEG) Urine Yeast (Auto) (NONE PRSENT) Anion Gap 9.0 mmol/L (3-11) Est Creatinine Clear Calc Drug Dose 92.1 ml/min Estimated GFR () 111.8 Estimated GFR (Non- 96.5 BUN/Creatinine Ratio 9.8 (10-20) Calcium Level 9.2 mg/dl (8.5-10.1) Total Bilirubin 0.3 mg/dl (0.2-1) Direct Bilirubin 0.1 mg/dl (0-0.2) Aspartate Amino Transf (AST/SGOT) 20 U/L (15-37) Alanine Aminotransferase (ALT/SGPT) 28 U/L (12-78) Alkaline Phosphatase 87 U/L (45-117) Total Protein 7.2 gm/dl (6.4-8.2) Albumin 3.8 gm/dl (3.4-5.0) Lipase 98 U/L (73-393) Labs reviewed by ED physician. Medications Administered Medications (Trade) Dose Ordered Sig/Frankie Route Start Time Stop Time Status Last Admin Dose Admin Ketorolac Tromethamine (Toradol Inj) 30 mg NOW STAT IV 06/29/17 22:06 06/29/17 22:08 DC 06/29/17 22:30 30 MG Promethazine HCl 25 mg/Sodium Chloride 51 ml @ 204 mls/hr NOW STAT IV 06/29/17 22:06 06/29/17 22:20 DC 06/29/17 22:30 204 MLS/HR Sodium Chloride 1,000 ml @ 999 mls/hr Q1H1M STAT IV 06/29/17 22:06 06/29/17 23:06 DC 06/29/17 22:29 999 MLS/HR Ceftriaxone Sodium (Rocephin Inj) 1 gm NOW STAT IV 06/29/17 23:15 06/29/17 23:16 DC 06/29/17 23:30 1 GM Trimethoprim/ Sulfamethoxazole (Septra Ds 800/ 160MG Tab) 1 tab NOW STAT PO 06/29/17 23:56 06/29/17 23:58 DC 06/30/17 00:08 1 TAB Phenazopyridine HCl (Phenazopyridine HCl 200MG Home Pack) 1 homepack UD ONCE PO 06/30/17 00:00 06/30/17 00:01 DC 06/30/17 00:04 1 HOMEPACK Phenazopyridine HCl (Pyridium Tab) 200 mg NOW STAT PO 06/29/17 23:56 06/29/17 23:58 DC 06/30/17 00:04 200 MG Ondansetron HCl (ZOFRAN ODT 4MG Home Pack) 1 homepack UD ONCE PO 06/30/17 00:00 06/30/17 00:01 DC 06/30/17 00:04 1 HOMEPACK Diphenhydramine HCl (Benadryl Inj) 25 mg NOW STAT IV 06/29/17 23:56 06/29/17 23:59 DC 06/30/17 00:04 25 MG ED Course 2201: Past medical records reviewed. The patient was evaluated in room C8. A complete history and physical examination was performed. 2206: NSS 1000 ml @ 999 mls/hr IV, Promethazine HCl 25 mg/Sodium Chloride 51 ml @ 204 mls/hr IV, Toradol Inj 30 mg IV. 2315: Rocephin Inj 1 gm IV. 2352: Upon reexamination the patient is resting comfortably. I discussed results and treatment plan with the patient. She verbalizes agreement and understanding. The patient is ready for discharge. 2356: Benadryl Inj 25 mg IV, Pyridium Tab 200 mg PO, Trimethoprim/ Sulfamethoxazole 1 tab PO. 0000: Ondansetron HCl 1 homepack PO, Phenazopyridine HCl 1 homepack PO. Medical Decision Differential diagnosis: Etiologies such as renal colic, appendicitis, diverticulitis, mesenteric ischemia, aortic pathology, infections, inflammatory bowel disease, PUD, biliary pathology, UTI, as well as others were entertained. This is a 61-year-old female who presents emergency department complaining of hematuria. The patient was sent for CAT scan of the abdomen pelvis however there is no evidence of stone. The patient does appear to have a urinary tract infection. An IV was established, patient given normal saline bolus, Toradol. The patient was started on Rocephin. She will be continued on Bactrim at home. She was given Zofran for nausea. Patient was in agreement with the treatment plan. Medication Reconcilliation Current Medication List: was personally reviewed by me Blood Pressure Screening Patient's blood pressure: Normal blood pressure Blood pressure disposition: Did not require urgent referral Impression Primary Impression: Urinary tract infection Scribe Attestation The scribe's documentation has been prepared under my direction and personally reviewed by me in its entirety. I confirm that the note above accurately reflects all work, treatment, procedures, and medical decision making performed by me. Departure Information Dispostion Home / Self-Care Prescriptions Ondasetron Odt (ZOFRAN ODT) 4 Mg Tab 4 MG SL Q6H for Nausea, #6 TAB Prov: Ron Wilkins MD 06/29/17 Sulfamethoxazole-Trimethoprim (Bactrim Ds 800MG/160MG) 1 Tab Tab 1 TAB PO BID for 10 Days, #20 TAB Prov: Ron Wilkins MD 06/29/17 Referrals Brian Roque M.D. (PCP) Forms HOME CARE DOCUMENTATION FORM, IMPORTANT VISIT INFORMATION Patient Instructions ED UTI Cystitis Female, My [facility] Additional Instructions Follow up with Dr Roque's office Culture results are usually available in approx 48 hours You have been examined and treated today on an emergency basis only. This is not a substitute for, or an effort to provide, complete comprehensive medical care. It is impossible to recognize and treat all injuries or illnesses in a single emergency department visit. It is therefore important that you follow up closely with DR Roque. Call as soon as possible for an appointment. Thank you for your time and consideration. I look forward to speaking with you again soon. Please don't hesitate to call us if you have any questions. Problem Qualifiers Primary Impression: Urinary tract infection Urinary tract infection type: acute cystitis Hematuria presence: with hematuria Qualified Codes: N30.01 - Acute cystitis with hematuria
[2017-06-29 22:54] LABS: BUN/CREATININE RATIO 9.8 (10-20); CALCIUM 9.2 mg/dl (8.5-10.1); CREATININE 0.65 mg/dl (0.60-1.20); POTASSIUM 3.6 mmol/L (3.5-5.1)
[2017-06-29 23:06] LABS: URINE APPEARANCE CLEAR (CLEAR); URINE BILIRUBIN NEG (NEG); URINE COLOR RED; URINE NITRITE NEG (NEG); URINE SPECIFIC GRAVITY 1.005 (1.000-1.030); UROBILINOGEN NEG (NEG)
[2017-06-29 23:12] LABS: MANUAL MICROSCOPIC REQUIRED? NO; REVIEW REQ? YES; SULFASALICYLIC ACID POS (NEG)
[2017-06-29] MEDS: CEFTRIAXONE SOD INJ 1 GM ADDVIAL IV STA (23:30)
[2017-06-29] MEDS ORDERED: SULF800T23 PO (23:59)
[2017-06-30] MEDS: ONDANSETRON HOME PACK 4MG OD TAB PO ONE (00:04)
[2017-06-30] MEDS: PHENAZOPYRIDINE HOME PACK 200 MG VIAL PO ONE (00:04)
[2017-06-30] MEDS: PHENAZOPYRIDINE HCL 200 MG TAB PO STA (00:04)
[2017-06-30] MEDS: DiphenhydrAMINE HCL 50 MG/ML VIAL IV STA (00:04)
[2017-06-30] MEDS: SULFAMETHOXAZOLE/TRIMETHOPRIM DS 800/160MG TAB PO STA (00:08)
[2017-06-30 00:12] VITALS: BP 112/64; PULSE 87; O2SAT 95
--- NOTE | 2017-06-30 07:19 | DIAGNOSTIC IMAGING REPORT ---
ABDOMEN AND PELVIS CT WITHOUT CONTRAST CT DOSE: 970.45 mGycm HISTORY: Pt c/o left flank pain TECHNIQUE: Multiaxial CT images of the abdomen and pelvis were performed without the use of intravenous and oral contrast according to the standard department stone protocol. A dose lowering technique was utilized adhering to the principles of ALARA. COMPARISON STUDY: None. FINDINGS: The lung bases are clear. The unenhanced liver, gallbladder, spleen, pancreas, and adrenal glands are unremarkable. No renal stones or hydronephrosis. No bowel wall thickening or obstruction. Hysterectomy. Mild bladder wall thickening. Suboptimal evaluation for bowel pathology due to the lack of intravenous and oral contrast. A few scattered colonic diverticula. Normal appendix. No suspicious lytic or blastic osseous lesions. IMPRESSION: 1. No renal or ureteral stones. No hydronephrosis. 2. Mild bladder wall thickening which could be due to underdistention. Recommend correlation with urinalysis to exclude a cystitis. Electronically signed by: Yobany Meneses M.D. 06/30/2017 7:18 AM Dictated Date/Time: 06/30/2017 7:15 AM
--- NOTE | 2017-07-02 12:44 | Pharmacy Progress Note ---
ED Pharmacist Culture FollowUp Date of Service: Jul 02, 2017. Patient was sent home with a prescription for bactrim 1 tab BID x 10 days, which should cover the E. coli growing from the patient's urine culture.
== END 2017-06-30 00:14 | disposition home or self-care (01) ==
LOC: C.EDB 21:49 → C.EDC 06-30 00:14
DX: N39.0 Urinary tract infection, site not specified (principal); K58.9 Irritable bowel syndrome, unspecified; Z79.84 Long term (current) use of oral hypoglycemic drugs; Z79.899 Other long term (current) drug therapy; Z88.0 Allergy status to penicillin; Z88.5 Allergy status to narcotic agent; Z88.8 Allergy status to other drugs, medicaments and biological substances; Z91.09 Other allergy status, other than to drugs and biological substances; Z80.9 Family history of malignant neoplasm, unspecified; Z83.3 Family history of diabetes mellitus; Z83.79 Family history of other diseases of the digestive system; Z82.49 Family history of ischemic heart disease and other diseases of the circulatory system

== ENCOUNTER → 2017-07-19 | Outpatient (CLI) | payer OTHER ==
[~2017-07-19] MED LIST changes: +DICL1GEL12 TOP; -DICL1GEL28 TOP; -GLC/500 PO; +METF1TAB85 PO; +MOME6000 NAE; -MULT-506 PO; -NYSCR30 EXT; +ONDA4TAB10 SL; -ONDA4TAB46 PO
== END ==
LOC: C.PATHSPEC 17:41
PROVIDERS: ATTEND Nurse Practitioner Family
DX: R31.9 Hematuria, unspecified (principal)

== ENCOUNTER → 2017-07-20 | Outpatient (CLI) | payer OTHER ==
[2017-07-20 14:43] LABS: BASO % 0.7 %; BASO ABS # 0.06 K/uL (0-0.2); COMPLETE YES; EOS % 1.3 %; HEMATOCRIT 38.4 % (37-47); IG% 0.1 %; LYMPH % 34.4 %; LYMPH ABS # 2.83 K/uL (1.2-3.4); MEAN CELL VOLUME 80.7 fL (80-100); MEAN CORPUSCULAR HEMOGLOBIN 27.3 pg (25-34); MEAN CORPUSCULAR HGB CONC 33.9 g/dl (32-36); MEAN PLATELET VOLUME 9.7 fL (7.4-10.4); MONO % 5.8 %; NEUT % 57.7 %; PLATELET COUNT 299 K/uL (130-400); RED BLOOD COUNT 4.76 M/uL (4.2-5.4); WHITE BLOOD COUNT 8.23 K/uL (4.8-10.8)
[2017-07-20 15:27] LABS: BLOOD UREA NITROGEN 13 mg/dl (7-18); CREATININE 0.63 mg/dl (0.60-1.20)
== END | disposition home or self-care (01) ==
LOC: C.LAB 13:41
PROVIDERS: ATTEND Nurse Practitioner Adult Health
DX: R31.9 Hematuria, unspecified (principal)

== ENCOUNTER → 2017-07-26 | Outpatient (CLI) | payer OTHER ==
[~2017-07-26] MED LIST changes: +OPTIRAY 320 IV PRN
--- NOTE | 2017-07-26 11:30 | DIAGNOSTIC IMAGING REPORT ---
ABD/PELVIS IV CONTRAST ONLY CT DOSE: 855.96 mGycm HISTORY: Hematuria R31.[address] on Jun 30. E X0D E [id number] TECHNIQUE: Multiaxial CT images of the abdomen and pelvis were performed following the use of intravenous contrast. A dose lowering technique was utilized adhering to the principles of ALARA. COMPARISON STUDY: 06/29/2017 FINDINGS: Lung bases are clear. Liver spleen and pancreas are unremarkable. Kidneys enhance uniformly. Collecting systems are unremarkable. Three-dimensional evaluation shows no well-defined filling defect. There appears to be a potential small polypoid lesion involving a calyx mid pole left kidney. Reconstruction, however suggest this represents normal renal parenchyma. No well-defined filling defects are seen. Ureters normal in course and caliber. Bladder is midline. No significant bladder filling defects are appreciated. Bowel pattern is considered nonobstructive. The appendix normal. Mild scattered colonic diverticulosis with no evidence for acute diverticulitis. Moderate degenerative change lumbar spine. IMPRESSION: No significant abnormality identified within the abdomen or pelvis. No significant abnormality of the urinary tracts The above report was generated using voice recognition software. It may contain grammatical, syntax or spelling errors. Electronically signed by: Bradley Vera M.D. 07/26/2017 11:28 AM Dictated Date/Time: 07/26/2017 11:21 AM
== END | disposition home or self-care (01) ==
LOC: C.CTS 10:33
PROVIDERS: ATTEND Nurse Practitioner Family
DX: R31.9 Hematuria, unspecified (principal)

== ENCOUNTER → 2017-07-28 | Outpatient (CLI) | payer OTHER ==
[~2017-07-28] MED LIST changes: -OPTIRAY 320 IV PRN
[2017-07-28 12:59] LABS: BLOOD UREA NITROGEN 16 mg/dl (7-18); BUN/CREATININE RATIO 25.3 (10-20); CREATININE 0.63 mg/dl (0.60-1.20)
== END | disposition home or self-care (01) ==
LOC: C.LAB 10:50
PROVIDERS: ATTEND Nurse Practitioner Family
DX: R31.9 Hematuria, unspecified (principal)

== ENCOUNTER → 2017-09-08 | Outpatient (CLI) | payer OTHER ==
--- NOTE | 2017-09-08 12:24 | DIAGNOSTIC IMAGING REPORT ---
L HIP UNILATERAL 2 VIEWS HISTORY: 61 years-old Female M54.16 Lumbar [id number] acute low back pain with radiation into the left leg COMPARISON: CT abdomen and pelvis 07/26/2017 TECHNIQUE: 2 views of the left hip FINDINGS: There is moderate left hip osteoarthritis. No acute fracture or dislocation. The imaged left hemipelvis appears intact. Probable phleboliths of the left hemipelvis is noted. Soft tissues are unremarkable. IMPRESSION: Moderate left hip osteoarthritis without acute fracture or dislocation. The above report was generated using voice recognition software. It may contain grammatical, syntax or spelling errors. Electronically signed by: Ruperto Cagle M.D. 09/08/2017 12:23 PM Dictated Date/Time: 09/08/2017 12:21 PM
--- NOTE | 2017-09-08 12:28 | DIAGNOSTIC IMAGING REPORT ---
L-SPINE MIN 4 VIEWS ROUTINE HISTORY: 61 years-old Female M54.16 Lumbar [id number] COMPARISON: CT abdomen and pelvis 07/26/2017 TECHNIQUE: 5 views of the lumbar spine FINDINGS: There are 5 lumbar type vertebral segments present. Mild levoscoliosis. No definite spondylolysis or spondylolisthesis. Severe intervertebral disc space narrowing is again seen within the lower thoracic spine and also at 1-L2 and L2-L3. Advanced facet arthrosis of the mid and lower lumbar spine. Mild multilevel endplate spurring. There is 2 mm retrolisthesis L1 on L2 which is unchanged and likely degenerative in nature. No acute fracture or subluxation is identified. Moderate changes of the bilateral hips. IMPRESSION: 1. No acute fracture or subluxation of lumbar spine. 2. Multilevel degenerative changes as above. The above report was generated using voice recognition software. It may contain grammatical, syntax or spelling errors. Electronically signed by: Ruperto Cagle M.D. 09/08/2017 12:26 PM Dictated Date/Time: 09/08/2017 12:24 PM
[2017-09-08 12:46] LABS: ESTIMATED AVERAGE GLUCOSE 157 mg/dl; HA1C FLAG Normal (Normal)
[2017-09-08 13:14] LABS: BLOOD UREA NITROGEN 11 mg/dl (7-18); GLUCOSE 111 mg/dl (70-99)
[2017-09-08 13:15] LABS: ALKALINE PHOSPHATASE 84 U/L (45-117); AST/SGOT 15 U/L (15-37); BUN/CREATININE RATIO 19.3 (10-20); CALCIUM 8.8 mg/dl (8.5-10.1); CARBON DIOXIDE 29 mmol/L (21-32); CHLORIDE 94 mmol/L (98-107); CREATININE 0.58 mg/dl (0.60-1.20); POTASSIUM 4.2 mmol/L (3.5-5.1); SODIUM 129 mmol/L (136-145)
[2017-09-08 13:26] LABS: ALT/SGPT 28 U/L (12-78); CHOLESTEROL 121 mg/dl (0-200); CHOLESTEROL/HDL RATIO 2.7; HDL CHOLESTEROL 45 mg/dl; LDL CHOLESTEROL CALCULATED 51 mg/dl; TRIGLYCERIDES 126 mg/dl (0-150); VERY LOW DENSITY LIPOPROT CALC 25 mg/dl
== END | disposition home or self-care (01) ==
LOC: C.RAD 10:48
PROVIDERS: ATTEND Internal Medicine
DX: M54.16 Radiculopathy, lumbar region (principal); K76.0 Fatty (change of) liver, not elsewhere classified; E78.00 Pure hypercholesterolemia, unspecified; E11.8 Type 2 diabetes mellitus with unspecified complications; E03.9 Hypothyroidism, unspecified; M16.12 Unilateral primary osteoarthritis, left hip

== ENCOUNTER → 2017-12-29 | Outpatient (CLI) | payer BC ==
[2017-12-29 16:15] LABS: HEMOGLOBIN A1C 7.1 % (4.5-5.6)
[2017-12-29 16:48] LABS: BLOOD UREA NITROGEN 16 mg/dl (7-18); CALCIUM 9.6 mg/dl (8.5-10.1); CARBON DIOXIDE 30 mmol/L (21-32); CHOLESTEROL 146 mg/dl (0-200); GLUCOSE 97 mg/dl (70-99); SODIUM 133 mmol/L (136-145)
[2017-12-29 16:51] LABS: CREATININE RANDOM URINE 47.1 mg/dl
[2017-12-29 16:59] LABS: LDL CHOLESTEROL CALCULATED 63 mg/dl
== END | disposition home or self-care (01) ==
LOC: C.LAB 14:19
PROVIDERS: ATTEND Internal Medicine
DX: E78.00 Pure hypercholesterolemia, unspecified (principal); Z11.59 Encounter for screening for other viral diseases; E03.9 Hypothyroidism, unspecified; E11.42 Type 2 diabetes mellitus with diabetic polyneuropathy

== ENCOUNTER → 2017-12-30 | Outpatient (CLI) | payer BC ==
--- NOTE | 2017-12-30 16:15 | DIAGNOSTIC IMAGING REPORT ---
SI JOINTS 3 OR MORE VIEWS CLINICAL HISTORY: 62 years-old Female presenting with Buttock pain. TECHNIQUE: Frontal and bilateral oblique views of the sacroiliac joints were obtained. COMPARISON: CT from 07/26/2017. FINDINGS: Sacroiliac joints symmetric and without evidence of erosions or osseous fusion. No significant osteophytosis. Arcuate lines intact. Lower lumbar spine within normal limits. Bilateral hip joints congruent. Pubic symphysis congruent. Bony pelvis intact. IMPRESSION: Normal radiographic examination of the sacroiliac joints. Electronically signed by: Dao Hoyt M.D. 12/30/2017 4:14 PM Dictated Date/Time: 12/30/2017 4:13 PM
--- NOTE | 2017-12-30 16:17 | DIAGNOSTIC IMAGING REPORT ---
SACRUM COCCYX MIN 2 VIEWS CLINICAL HISTORY: 62 years-old Female presenting with Buttock pain. TECHNIQUE: 3 views of the sacrum and coccyx were obtained. COMPARISON: CT from 07/26/2017. FINDINGS: Normal alignment of the sacrum with the coccyx. No displaced fracture. Osteopenia suspected, which limits evaluation. Furthermore gas and stool in the rectum and sigmoid colon limited demyelination. Arcuate lines intact. No gross evidence of a sacral fracture. IMPRESSION: 1. Normal radiographic evaluation of the sacrum and coccyx. 2. Suspected osteopenia. Electronically signed by: Dao Hoyt M.D. 12/30/2017 4:16 PM Dictated Date/Time: 12/30/2017 4:14 PM
== END | disposition home or self-care (01) ==
LOC: C.RAD1850 15:17
PROVIDERS: ATTEND Internal Medicine
DX: M79.1 Myalgia (principal)

== ENCOUNTER → 2018-04-26 | Outpatient (CLI) | payer BC ==
[~2018-04-26] MED LIST changes: -POLY335019 PO; -SPIR50TA3 PO; +SPIR50TA5 PO
[2018-04-26 12:33] LABS: HEMOGLOBIN A1C 7.1 % (4.5-5.6)
[2018-04-26 12:43] LABS: ALBUMIN 3.6 gm/dl (3.4-5.0); ALKALINE PHOSPHATASE 83 U/L (45-117); ALT/SGPT 36 U/L (12-78); AST/SGOT 18 U/L (15-37); BLOOD UREA NITROGEN 12 mg/dl (7-18); CALCIUM 9.1 mg/dl (8.5-10.1); CARBON DIOXIDE 30 mmol/L (21-32); CHOLESTEROL 121 mg/dl (0-200); CREATININE 0.63 mg/dl (0.60-1.20); GLUCOSE 102 mg/dl (70-99); LDL CHOLESTEROL CALCULATED 48 mg/dl; POTASSIUM 4.1 mmol/L (3.5-5.1); SODIUM 135 mmol/L (136-145); TOTAL PROTEIN 7.2 gm/dl (6.4-8.2)
== END | disposition home or self-care (01) ==
LOC: C.LAB 09:56
PROVIDERS: ATTEND Internal Medicine
DX: E03.9 Hypothyroidism, unspecified (principal); E11.42 Type 2 diabetes mellitus with diabetic polyneuropathy; K76.0 Fatty (change of) liver, not elsewhere classified

== ENCOUNTER → 2018-05-03 | Outpatient (CLI) | payer BC ==
--- NOTE | 2018-05-04 14:55 | MAMMOGRAPHY REPORT ---
BILATERAL DIGITAL SCREENING MAMMOGRAM TOMOSYNTHESIS WITH CAD: 05/03/2018 CLINICAL HISTORY: Routine screening. TECHNIQUE: The study was acquired using full field digital technology and interpreted from soft copy. Breast tomosynthesis in addition to standard 2D mammography was performed. Current study was also ev aluated with a Computer Aided Detection (CAD) system. COMPARISON: Comparison is made to exams dated: 04/29/2017 mammogram, 04/27/2016 mammogram, 04/22/2015 m ammogram, 04/18/2014 mammogram, 04/17/2013 mammogram, and 04/15/2012 mammogram - [facility] enter. BREAST COMPOSITION: The tissue of both breasts is almost entirely fatty. FINDINGS: A linear scar marker overlies the left superior/12:00 posterior breast. There is a stable intramammary lymph node in the left upper outer quadrant and scattered benign rim calcifications bila terally. No suspicious mass, architectural distortion or cluster of microcalcifications is seen. IMPRESSION: ACR BI-RADS CATEGORY 1: NEGATIVE There is no mammographic evidence of malignancy. A 1 year screening mammogram is recommended.( 019) The patient will receive written notification of the results. Some breast cancers are not detected with mammography. A negative mammographic report should not maico y biopsy if a clinically suggestive mass is present. Erin Antoine M.D. ay/:05/03/2018 16:01:24 Technical Stenographer: RT Gela(Kunal)(Dejon), [facility] letter sent: Normal 1/2 BI-RADS Code: ACR BI-RADS Category 1: Negative
== END | disposition home or self-care (01) ==
LOC: C.MAMM 10:57
PROVIDERS: ATTEND Obstetrics & Gynecology
DX: Z12.31 Encounter for screening mammogram for malignant neoplasm of breast (principal)

== ENCOUNTER → 2018-05-11 | Outpatient (CLI) | payer BC | END | disposition home or self-care (01) | LOC: C.LAB1850 16:31 | PROVIDERS: ATTEND Internal Medicine | DX: T14.8XXA Other injury of unspecified body region, initial encounter (principal); W57.XXXA Bitten or stung by nonvenomous insect and other nonvenomous arthropods, initial encounter ==